=== PATIENT | female | born 1980 | race Two or more races ===

== ENCOUNTER 2025-01-24 06:25 | Day surgery (SDC) | payer OTHER ==
[2025-01-23 14:25] VITALS: BMI 38.2
[2025-01-24] MEDS ORDERED: SIMETHICONE 40 MG/0.6 ML BOTTLE ONE (11:44)
[2025-01-24 13:18] VITALS: RESP 20; TEMP 98
[2025-01-24 13:34] VITALS: BP 132/85; PULSE 80
== END 2025-01-24 14:21 | disposition home or self-care (01) ==
LOC: JASU-ENDO 06:25
PROVIDERS: ATTEND Internal Medicine Gastroenterology
PROC: 0DB68ZX Excision of Stomach, Via Natural or Artificial Opening Endoscopic, Diagnostic (ICD-10-PCS; 2025-01-24)
PROC: 0DB78ZX Excision of Stomach, Pylorus, Via Natural or Artificial Opening Endoscopic, Diagnostic (ICD-10-PCS; 2025-01-24)
PROC: 0DJD8ZZ Inspection of Lower Intestinal Tract, Via Natural or Artificial Opening Endoscopic (ICD-10-PCS; principal; 2025-01-24 10:15)
DX: Z12.11 Encounter for screening for malignant neoplasm of colon (principal); K64.8 Other hemorrhoids; K64.4 Residual hemorrhoidal skin tags; K29.50 Unspecified chronic gastritis without bleeding; B96.81 Helicobacter pylori [H. pylori] as the cause of diseases classified elsewhere; Z01.818 Encounter for other preprocedural examination; Z80.0 Family history of malignant neoplasm of digestive organs
CPT/HCPCS: 81025; 88305-TC; 88342-TC